=== PATIENT | female | born 1985 | race Two or more races ===

== ENCOUNTER → 2023-12-11 | Emergency (ER) | payer OTHER ==
[~2023-12-11] VITALS: Ht 167.6 cm; Wt 63.5 kg
[~2023-12-11] MED LIST: ACETAMINOPHEN 325 MG TABLET ONE; METOCLOPRAMIDE HCL 10 MG/2 ML VIAL ONE; diphenhydrAMINE HCL 50 MG/ML VIAL ONE
[2023-12-11 19:45] LABS: HEMATOCRIT 41 % (33-45); HEMOGLOBIN 14.1 g/dL (11.5-14.8); MEAN CORPUSCULAR HGB CONC 34 g/dl (31.0-36.0)
[2023-12-11 19:48] LABS: BASOPHILS # (AUTO) 0.1 K/uL (0.0-0.2); BASOPHILS % (AUTO) 0.7 % (0.0-2.0); EOSINOPHILS % (AUTO) 0.4 % (0.0-6.0); LYMPHOCYTES # (AUTO) 2.7 K/uL (0.8-4.8); LYMPHOCYTES % (AUTO) 37.5 % (20.0-44.0); MEAN CORPUSCULAR HEMOGLOBIN 31 PG (26.0-33.0); MEAN CORPUSCULAR VOLUME 91 fL (82-100); MONOCYTES # (AUTO) 0.4 K/uL (0.1-1.30); MONOCYTES % (AUTO) 5.4 % (2.0-12.0); NEUTROPHILS # (AUTO) 4.1 K/uL (1.8-8.9); PLATELET COUNT (AUTO) 190 K/uL (150-450); RED BLOOD CELL COUNT(AUTO) 4.51 MIL/uL (4.0-5.2); RED CELL DISTRIBUTION WIDTH 12.9 % (11.5-15.0); WHITE BLOOD COUNT (AUTO) 7.3 K/uL (4.3-11.0)
[2023-12-11 19:53] LABS: CALCIUM, SERUM 8.8 mg/dL (8.5-10.1); CARBON DIOXIDE 28 mmol/L (21-32); CHLORIDE 100 mmol/L (98-107); CREATININE 0.8 mg/dL (0.6-1.3); GLUCOSE 88 mg/dL (74-106); SODIUM SERUM 133 mmol/L (136-145); UREA NITROGEN, BLOOD 17 mg/dL (7-18)
[2023-12-11 19:59] LABS: ALANINE AMINOTRANSFERASE 33 U/L (12-78); ALBUMIN 3.9 g/dL (3.4-5.0); ALKALINE PHOSPHATASE 26 U/L (46-116); ASPARTATE AMINOTRANSFERASE 21 U/L (15-37); BILIRUBIN,DIRECT 0.1 mg/dL (0.0-0.2); BILIRUBIN,TOTAL 0.3 mg/dL (0.2-1.0); TOTAL PROTEIN, SERUM 7.5 g/dL (6.4-8.2)
[2023-12-11] MEDS: IV NS 0.9% 1,000 ML BAG IV ONE (20:05)
[2023-12-11] MEDS: ACETAMINOPHEN 325 MG TABLET PO ONE (20:11)
[2023-12-11] MEDS: diphenhydrAMINE HCL 50 MG/ML VIAL IV ONE (20:30)
[2023-12-11] MEDS: METOCLOPRAMIDE HCL 10 MG/2 ML VIAL IV ONE (20:33)
[2023-12-11 21:40] VITALS: BP 124/78; TEMP 98.1; O2SAT 99
== END | disposition left against medical advice (07) ==
LOC: ER 18:52
DX: R00.2 Palpitations (principal); R42 Dizziness and giddiness; R51.9 Headache, unspecified; R61 Generalized hyperhidrosis; E03.9 Hypothyroidism, unspecified; Z88.0 Allergy status to penicillin
CPT/HCPCS: 99285; 96374; 71045; 96361; 96375; 93005; 85025; 80048; 80076; 83735; 36415; 84443; 84484; J1200; J2765; J7030

== ENCOUNTER 2023-12-12 15:34 | Emergency (ER) | payer OTHER ==
[~2023-12-12] VITALS: Ht 167.6 cm; Wt 63.5 kg
[2023-12-12 16:29] LABS: BASOPHILS % (AUTO) 0.6 % (0.0-2.0); EOSINOPHILS % (AUTO) 0.6 % (0.0-6.0); HEMATOCRIT 40 % (33-45); HEMOGLOBIN 13.6 g/dL (11.5-14.8); LYMPHOCYTES # (AUTO) 2.5 K/uL (0.8-4.8); LYMPHOCYTES % (AUTO) 39.6 % (20.0-44.0); MEAN CORPUSCULAR HEMOGLOBIN 31 PG (26.0-33.0); MEAN CORPUSCULAR HGB CONC 34 g/dl (31.0-36.0); MEAN CORPUSCULAR VOLUME 92 fL (82-100); MONOCYTES # (AUTO) 0.3 K/uL (0.1-1.30); MONOCYTES % (AUTO) 4.4 % (2.0-12.0); NEUTROPHILS # (AUTO) 3.5 K/uL (1.8-8.9); NEUTROPHILS % (AUTO) 54.8 % (43.0-81.0); PLATELET COUNT (AUTO) 188 K/uL (150-450); RED BLOOD CELL COUNT(AUTO) 4.32 MIL/uL (4.0-5.2); RED CELL DISTRIBUTION WIDTH 13.1 % (11.5-15.0); WHITE BLOOD COUNT (AUTO) 6.4 K/uL (4.3-11.0)
[2023-12-12 16:47] LABS: CARBON DIOXIDE 28 mmol/L (21-32); CHLORIDE 104 mmol/L (98-107); CREATININE 0.7 mg/dL (0.6-1.3); GLUCOSE 98 mg/dL (74-106); POTASSIUM 3.6 mmol/L (3.5-5.1); SODIUM SERUM 139 mmol/L (136-145); UREA NITROGEN, BLOOD 13 mg/dL (7-18)
[2023-12-12 17:55] VITALS: BP 135/60; TEMP 98.2; O2SAT 100
== END 2023-12-12 17:56 | disposition home or self-care (01) ==
LOC: ER 15:34
DX: R07.89 Other chest pain (principal); R00.0 Tachycardia, unspecified; E03.9 Hypothyroidism, unspecified; Z88.0 Allergy status to penicillin
CPT/HCPCS: 36415; 80048-TC; 84484-TC; 85025-TC